=== PATIENT | female | born 1970 | race Caucasian/White ===

== ENCOUNTER 2022-02-14 18:53 | Observation (INO) ==
[2022-02-14] MEDS ORDERED: Morphine 4 MG/ML VIAL (1 ml) IV ONE (20:02)
[2022-02-14 20:06] LABS: ABS Basophils 0.1 10^3/ul (0-0.2); ABS Lymphocytes 1.6 10^3/ul (1.0-4.8); ABS Monocytes 0.9 10^3/ul (0-0.8); ABS Neutrophils 15.5 10^3/ul (1.5-7.7); Eosinophil % 0.1 %; Hematocrit 54 % (35-47); Hemoglobin 17.9 g/dL (12.0-16.0); Lymphocyte % 8.9 %; Mean Corpuscular HGB Conc 33 g/dL (31-36); Mean Corpuscular Hemoglobin 31 pg (27-31); Mean Corpuscular Volume 91 fL (80-97); Mean Platelet Volume 7.5 fL (7.4-10.4); Platelet Count 365 10^3/uL (150-450); Red Blood Count 5.85 10^6 /uL (3.70-4.87); Red Cell Distribution Width 14 % (10-15); White Blood Count 18.1 10^3/uL (3.5-10.8)
[2022-02-14 20:17] LABS: Activated Partial Thrombo Time 28.8 seconds (26.0-38.0); INR 0.85 (0.89-1.11)
[2022-02-14] MEDS ORDERED: Lactated Ringers 1000 ml BAG 1,000 ML IV ONE (20:22)
[2022-02-14 20:50] LABS: Albumin 5.1 g/dL (3.2-5.2); Albumin/Globulin Ratio 1.2 (1-3); Calcium 11.1 mg/dL (8.6-10.3); Globulin 4.4 g/dL (2-4); HDL Cholesterol 94.4 mg/dL; Total Bilirubin 0.5 mg/dL (0.2-1.0); Total Protein 9.5 g/dL (6.4-8.9); eGFR CKD-EPI 64.3 (>60)
[2022-02-14 21:11] LABS: Potassium 3.5 mmol/L (3.5-5.0)
[2022-02-14] MEDS ORDERED: Iodixanol (CONTRAST) 320 MG/ML 100 ML SDV IV ONE (21:21)
[2022-02-14] MEDS ORDERED: levETIRAcetam 1000MG IVPREMIX 1,000 MG/100 ML BAG IVPB ONE ×2 (21:29→21:30)
[2022-02-14] MEDS ORDERED: niCARdipine 0.1MG/ML IVPREMIX 20 MG/200 ML BAG IV SCH (22:00)
[2022-02-14 22:07] LABS: Urine Appearance Clear; Urine Bilirubin Negative (Negative); Urine Blood Negative (Negative); Urine Color Straw; Urine Glucose Negative (Negative); Urine Ketones Negative (Negative); Urine Nitrite Negative (Negative); Urine Protein 1+(30 mg/dL) (Negative); Urine Specific Gravity 1.027 (1.002-1.030); Urine Urobilinogen Negative (Negative)
[2022-02-14 22:09] LABS: Urine Bacteria Absent (Absent); Urine Red Blood Cell Trace(0-2/hpf) (Absent); Urine Squamous Epithelial Cell Present (Absent); Urine White Blood Cell Trace(0-5/hpf) (Absent)
[2022-02-14] MEDS ORDERED: hydrALAZINE 20 mg/ml 1 ML Vial IV IV SLOW PU ONE (22:23)
[2022-02-14 23:38] LABS: Urine Benzodiazepine Screen None Detected (None Detect); Urine Cannabinoids Screen None Detected (None Detect); Urine Opiates Screen Presumptive Positive (None Detect)
[2022-02-14 23:49] LABS: Alcohol, S < 13 mg/dL (<13)
[2022-02-14 23:57] LABS: High Sens Troponin Baseline 18 pg/mL (<15)
[2022-02-15 00:36] LABS: Phosphorus 3.3 mg/dL (2.5-5.0)
[2022-02-15] MEDS ORDERED: NS 0.9% 1000 ml BAG 1,000 ML IV SCH (01:00)
[2022-02-15 01:02] LABS: High Sensitivity Troponin 1 Hr 20 pg/mL (<15)
[2022-02-15] MEDS ORDERED: Ondansetron 4 mg VIAL 2 MG/ML 2 ml VIAL IV ONE (01:08)
[2022-02-15] MEDS ORDERED: Thiamine 100 MG/ML 2 ml VIAL (200 mg) IV ONE (03:00)
[2022-02-15 03:06] LABS: Magnesium 2.9 mg/dL (1.9-2.7)
[2022-02-15] MEDS ORDERED: Thiamine 100 MG/ML 2 ml VIAL (200 mg) IM ONE (03:06)
[2022-02-15] MEDS ORDERED: Thiamine IV 100 MG in NS 0.9% 50 ML IV ONE (03:30)
[2022-02-15] MEDS: Multivitamins/Minerals TAB PO SCH ×2 (04:18→08:54)
[2022-02-15 06:03] LABS: ABS Basophils 0.1 10^3/ul (0-0.2); ABS Lymphocytes 2.4 10^3/ul (1.0-4.8); ABS Neutrophils 8.8 10^3/ul (1.5-7.7); Eosinophil % 0.1 %; Hematocrit 42 % (35-47); Hemoglobin 14.3 g/dL (12.0-16.0); Lymphocyte % 19.3 %; Mean Corpuscular HGB Conc 34 g/dL (31-36); Mean Corpuscular Hemoglobin 31 pg (27-31); Mean Corpuscular Volume 90 fL (80-97); Mean Platelet Volume 7.4 fL (7.4-10.4); Platelet Count 275 10^3/uL (150-450); Red Blood Count 4.65 10^6 /uL (3.70-4.87); Red Cell Distribution Width 14 % (10-15); White Blood Count 12.3 10^3/uL (3.5-10.8)
[2022-02-15 07:20] LABS: Albumin 3.6 g/dL (3.2-5.2); Albumin/Globulin Ratio 1.2 (1-3); Calcium 8.3 mg/dL (8.6-10.3); Globulin 2.9 g/dL (2-4); Potassium 3.3 mmol/L (3.5-5.0); Total Bilirubin 0.6 mg/dL (0.2-1.0); Total Protein 6.5 g/dL (6.4-8.9); eGFR CKD-EPI 94.8 (>60)
[2022-02-15] MEDS: Enoxaparin 40 MG/0.4 ML SYR SUBCUT SCH (08:54)
[2022-02-15] MEDS: Enalaprilat IV 1.25 mg/ml 1 ml VIAL (1.25 MG) IV PRN ×2 (08:55→22:43)
[2022-02-15] MEDS ORDERED: Potassium Chlor 20 meq TAB.ER PO ONE ×2 (11:00→14:01)
[2022-02-15] MEDS ORDERED: levETIRAcetam 1000MG IVPREMIX 1,000 MG/100 ML BAG IVPB ONE (13:32)
[2022-02-15] MEDS ORDERED: Lorazepam PYXIS KEY PRN (17:06)
[2022-02-15] MEDS ORDERED: LORazepam 2 mg VIAL 1 ml IV PUSH PRN (17:06)
[2022-02-16] MEDS: Enoxaparin 40 MG/0.4 ML SYR SUBCUT SCH (06:37)
[2022-02-16 06:45] LABS: Hematocrit 46 % (35-47); Hemoglobin 15.5 g/dL (12.0-16.0); Mean Corpuscular HGB Conc 34 g/dL (31-36); Mean Corpuscular Hemoglobin 32 pg (27-31); Mean Corpuscular Volume 93 fL (80-97); Mean Platelet Volume 7.5 fL (7.4-10.4); Platelet Count 251 10^3/uL (150-450); Red Blood Count 4.92 10^6 /uL (3.70-4.87); Red Cell Distribution Width 13 % (10-15); White Blood Count 8.5 10^3/uL (3.5-10.8)
[2022-02-16 07:14] LABS: Calcium 9.7 mg/dL (8.6-10.3); Magnesium 2.1 mg/dL (1.9-2.7); Phosphorus 3.8 mg/dL (2.5-5.0); Potassium 3.8 mmol/L (3.5-5.0); eGFR CKD-EPI 84.1 (>60)
[2022-02-16] MEDS ORDERED: Potassium Chlor 20 meq TAB.ER PO ONE (07:23)
[2022-02-16] MEDS: Multivitamins/Minerals TAB PO SCH (08:54)
[2022-02-16] MEDS ORDERED: Polyethylene Glycol 3350 17 GM PACKET PO SCH (12:00)
[2022-02-16] MEDS ORDERED: Gadoteridol (CONTRAST) 279.3 MG/ML 10 ML IV ONE (13:13)
[2022-02-16] MEDS ORDERED: Nicotine GUM 2MG FRUIT FLAVOR PO PRN (13:49)
[2022-02-16] MEDS ORDERED: Nicotine PATCH 21 MG/24 HR PATCH TRANSDERM SCH (13:50)
[2022-02-16 15:18] VITALS: BP 141/88
== END 2022-02-16 16:47 | disposition home or self-care (01) ==
LOC: EDBD → ED 18:53 → EDHOLD 18:53 → SUATTDRO 02-15 00:46 → MEDTELE 02-15 14:23
PROVIDERS: ADMIT Hospitalist; ATTEND Internal Medicine